=== PATIENT | male | born 1970 | race Caucasian/White ===

== ENCOUNTER 2017-07-27 07:56 | Emergency (ER) | payer BC ==
[~2017-07-27] VITALS: Ht 170.2 cm; Wt 84.9 kg
[2017-07-27 08:05] VITALS: TEMP 36.7; Ht 170.2 cm; Wt 84.9 kg
[2017-07-27] MEDS ORDERED: TRIA1SPR4 (08:58)
[2017-07-27] MEDS ORDERED: VNTHFA/IN INH (08:58)
[2017-07-27] MEDS ORDERED: SULF800T23 PO (09:18)
[2017-07-27] MEDS ORDERED: CEPH500C2 PO (09:18)
[2017-07-27 09:27] VITALS: BP 137/85; PULSE 70; O2SAT 99
--- NOTE | 2017-07-27 16:16 | EMERGENCY ROOM VISIT NOTE ---
ED Visit Note First contact with patient: 08:11 CHIEF COMPLAINT: Infection. HISTORY OF PRESENT ILLNESS: Mr. Reeder is an 47-year-old white male who ambulates into the ED complaining of pain and possible infection in the coccyx area. Historically patient reports she has had previous pilonidal abscess. He is also had surgery to remove the sinus tracts in the area of his pilonidal abscess. Patient reports last week he noticed a lump starting develop over the superior aspect of the gluteal cleft. He reports since that time that lump has been slowly getting larger and more tender. Currently he describes his associated pain as a sharp sensation. He rates his discomfort 4/10. His pain is constant but worsens with palpation and sitting on his buttocks. He has mild relief when he is not sitting on his buttocks and when he was taken ibuprofen. He denies any associated symptoms including fevers, chills, sweats, other skin eruptions, other skin color changes, abdominal pain, nausea, vomiting, diarrhea , constipation, rectal bleeding, black/tarry stools, drainage from the lesion. REVIEW OF SYSTEMS: As noted above in History of Present Illness; 8 body systems are reviewed with the patient and found to be negative unless noted above otherwise. PAST MEDICAL HISTORY: As noted above, asthma, chronic lower back pain. CURRENT MEDICATION: Albuterol, Nasacort. ALLERGIES TO MEDICATION: Patient denies. SOCIAL HISTORY: Patient is currently employed; he lives with his family and feels safe in his home environment; he admits to tobacco and alcohol use. PHYSICAL EXAM: Vital Signs: Date Time Temp Pulse Resp B/P (MAP) Pulse Ox O2 Delivery O2 Flow Rate FiO2 07/27/17 09:27 70 18 137/85 99 07/27/17 08:05 36.7 90 18 168/95 98 Room Air General: 47 year-old male in mild acute distress, nontoxic appearing, afebrile and hemodynamically stable. Neurological: Awake, alert and oriented to person, place and time. Answering questions appropriately and following commands. Skin: Warm, dry and pink. Gluteal Cleft: Starting in the superior aspect of the midline of the gluteal cleft extending to the right there is an indurated area which measures about 7 x 3 cm in diameter. The indurated area is not fluctuant and there is no pointing or drainage. There is a zone of inflammation around it but no lymphangitis. Thorax: Lungs sounds are clear to auscultation and equal bilaterally with symmetrical chest wall movement. No wheezing, rales or rhonchi. No increased respiratory effort. Abdomen: Flat, soft and nontender. Positive bowel sounds in all quadrants. No guarding or rigidity. ED COURSE: Patient is assessed as noted above. Patient's medication list was reviewed. Patient was educated about his condition and instructed on his treatment plan; he verbalized understanding and agreement with this plan. CLINICAL IMPRESSION: Early pilonidal abscess. DISPOSITION: Patient discharged to home in stable condition; prior to departure patient was reassessed and subjectively reported he was feeling better and rated his discomfort 3/10 PLAN: Comfort measures were discussed with the patient including rest, using they inflatable pillow, warm compresses and alternating ibuprofen and acetaminophen. Patient was prescribed Keflex 500 mg 4 times a day and Bactrim DS 2 times a day for 10 days. Patient was encouraged to follow-up with his PCP or return to the ED in 36-48 hours for recheck. Patient was educated on signs of worsening infection and was encouraged to return to the ED for worsening signs of infection or any new/concerning symptoms.
== END 2017-07-27 09:28 | disposition home or self-care (01) ==
LOC: C.EDB 07:57
DX: L05.01 Pilonidal cyst with abscess (principal); J45.909 Unspecified asthma, uncomplicated; Z79.899 Other long term (current) drug therapy; Z72.0 Tobacco use